=== PATIENT | male | born 1965 | race Caucasian/White ===

== ENCOUNTER → 2016-06-27 | Outpatient (CLI) | payer OTHER ==
[~2016-06-27] MED LIST: ALPR0.25 PO; CRESTOR10 MG PO; FLUT16SP NS; FLUT30CR5 TP; IOHEXOL 300 MG/ML 100ML VIAL. IV ONE; LEVO125T5 PO; PROAIR HFA8.5 GM INH; SUCR1TAB29 PO
--- NOTE | 2016-06-27 15:17 | KCIC ---
PROCEDURE CT chest with contrast, pulmonary angiogram. HISTORY Elevated D-dimer, shortness of air, palpitations, fever. TECHNIQUE Helical CT imaging of the chest is performed after 95 cc Omnipaque 300 IV contrast using pulmonary angiogram protocol. A coronal 3D MIP reconstruction is performed to better evaluate the pulmonary arteries. PQRS: One or more the following individualized dose reduction techniques were utilized for the study: 1. Automated exposure control. 2. Adjustment of the mA and/or kV according to patient size. 3. Use of iterative reconstruction technique. COMPARISON None. FINDINGS The pulmonary arteries are adequately contrast opacified. There is no CT evidence of pulmonary embolus. The great vessels are normal caliber. There is no thoracic aortic dissection. There is coronary artery disease. Thyroid is symmetric. No adenopathy in the chest. Cardiac size normal, no pericardial effusion. No pleural effusion is seen. Central airways are patent. Minimal dependent atelectasis in the lower lobes. Lungs otherwise clear. No acute abnormality in the visualized upper abdomen. No acute bone abnormality. IMPRESSION 1. No CT evidence of pulmonary embolus. 2. Coronary artery disease. Electronically signed by: Dusty Rios MD (Jun 27, 2016 15:15:35)
== END | disposition home or self-care (01) ==
LOC: KCIC CT 14:24
PROVIDERS: ATTEND Internal Medicine
DX: R79.1 Abnormal coagulation profile (principal); I25.10 Atherosclerotic heart disease of native coronary artery without angina pectoris
CPT/HCPCS: 71275; Q9967

== ENCOUNTER → 2016-07-31 | Outpatient (CLI) | payer OTHER ==
[~2016-07-31] MED LIST changes: -IOHEXOL 300 MG/ML 100ML VIAL. IV ONE
--- NOTE | 2016-07-31 11:59 | RAD ---
Gastric emptying study Indications: Nausea and vomiting for one month. Bloating and 15. Technique: After oral ingestion of a meal containing 2.0 mCi of technetium 99m sulfur colloid, anterior planar images of the upper abdomen were performed and a time/activity curve was generated. Half time gastric clearance was measured and calculated. Percent gastric emptying after 60 minutes was measured and calculated. Findings: Half-time gastric clearance is measured and calculated to be 477 minutes. Normal is 45-90 minutes. Therefore, there is significant delay in gastric emptying. IMPRESSION: Significant delay in gastric emptying. Only 2% gastric emptying is evident after 60 minutes.
== END | disposition home or self-care (01) ==
LOC: NM 07:10
PROVIDERS: ATTEND Internal Medicine Gastroenterology
DX: K30 Functional dyspepsia (principal)
CPT/HCPCS: 78264; A9541

== ENCOUNTER → 2017-05-27 | Outpatient (CLI) | payer OTHER | END | disposition home or self-care (01) | LOC: KCIC MRI 15:49 | DX: S83.241A Other tear of medial meniscus, current injury, right knee, initial encounter (principal); M17.11 Unilateral primary osteoarthritis, right knee; M94.261 Chondromalacia, right knee; X58.XXXA Exposure to other specified factors, initial encounter; Y93.89 Activity, other specified; Y92.89 Other specified places as the place of occurrence of the external cause; Y99.8 Other external cause status | CPT/HCPCS: 73721 ==